=== PATIENT | male | born 1975 | race American Indian/Alaskan Native ===

== ENCOUNTER 2018-06-28 11:09 | Emergency (ER) | payer MEDICAID ==
[2018-06-28 11:21] VITALS: BP 133/82
[2018-06-28] MEDS ORDERED: NACL 0.9% 1000 ML 1,000 ML IV ONE (12:22)
--- NOTE | 2018-06-28 13:02 | Cat Scan Report ---
FINAL REPORT EXAM: CT ABDOMEN PELVIS WO CON HISTORY: flank pain and dysuyria TECHNIQUE: CT of the abdomen and pelvis was performed without intravenous contrast. Reconstructions were included in the coronal and sagittal planes. PRIORS: None. FINDINGS: Lower thorax: The lung bases are clear. The visualized portions of the heart are normal. Liver: The liver is normal in attenuation. No intrahepatic biliary duct dilation. No focal hepatic lesions. Gallbladder/ biliary system: No cholelithiasis. The common bile duct appears nondilated. Spleen: No splenic lesions are seen. Pancreas: No pancreatic lesions are seen. No pancreatic duct dilation. Kidneys: No renal masses, cysts or hydronephrosis. No renal or ureteral calcifications. Adrenal glands: No adrenal masses. Vasculature: The abdominal aorta is nondilated. Lymph nodes: No enlarged lymph nodes are seen in the abdomen or pelvis. Bowel, mesentery, peritoneum: No bowel obstruction. No free fluid or free air. The appendix is normal. No colonic diverticulosis. No bowel wall thickening. Urinary bladder: No filling defects are seen. Pelvis: Normal anatomy is noted. No masses. Abdominal wall: No abdominal wall hernia or other subcutaneous findings. Bones: No acute or chronic osseous finding. IMPRESSION: No acute intra-abdominal or intra-pelvic process.
[2018-06-28 13:33] LABS: Basophils # (Auto) 0.1 K/mm3 (0.0-0.1); Basophils % (Auto) 0.4 % (0.0-1.8); Hematocrit 46.8 % (35.5-45.6); Hemoglobin 15.3 gm/dl (11.8-15.2); Lymphocytes # (Auto) 2.6 K/mm3 (1.2-5.4); Lymphocytes % (Auto) 12.9 % (13.4-35.0); Mean Corpuscular HGB Conc 33 % (32-34); Mean Corpuscular Hemoglobin 24 pg (28-32); Mean Corpuscular Volume 73 fl (84-94); Monocytes # (Auto) 1.8 K/mm3 (0.0-0.8); Platelet Count 284 K/mm3 (140-440); Red Blood Count 6.44 M/mm3 (3.65-5.03); Red Cell Distribution Width 15.4 % (13.2-15.2)
[2018-06-28] MEDS ORDERED: ROCEPHIN/NS 2 GM/100 ML 2 GM/100 ML BAG IV ONE (13:47)
[2018-06-28 13:48] LABS: Alanine Aminotransferase 19 units/L (7-56); Albumin 4.4 g/dL (3.9-5); BUN/Creatinine Ratio 11; Blood Urea Nitrogen 11 mg/dL (9-20); Calcium 9.2 mg/dL (8.4-10.2); Hemolysis Index 5
[2018-06-28 14:14] LABS: Bilirubin,Urine NEG (Negative); Blood,Urine LG (Negative); Color,Urine Amber (Yellow); Mucus,Urine 2+ /HPF
[2018-06-28 14:15] LABS: RBC,Urine > 182.0 /HPF (0.0-6.0); Urobilinogen,Urine < 2.0 mg/dL (<2.0); WBC,Urine > 182.0 /HPF (0.0-6.0)
--- NOTE | 2018-06-28 16:36 | Emergency Department Report ---
ED Male [facility] - General Chief complaint: Urogenital-Male Stated complaint: BODY ACHE Time Seen by Provider: 06/28/18 12:20 Source: patient Mode of arrival: Ambulatory Limitations: No Limitations - Related Data Previous Rx's Medication Instructions Recorded Last Taken Type Acetaminophen/Codeine [Tylenol 1 tab PO Q6H PRN #14 tab 06/28/18 Unknown Rx /Codeine # 3 tab] Ciprofloxacin HCl [Cipro] 500 mg PO BID #20 tablet 06/28/18 Unknown Rx Allergies Allergy/AdvReac Type Severity Reaction Status Date / Time iodine Allergy Unknown Verified 06/28/18 11:17 ED Review of Systems ROS: Stated complaint: BODY ACHE Other details as noted in HPI ED Past Medical Hx - Past Medical History Previous Medical History?: No - Surgical History Past Surgical History?: No - Social History Smoking Status: Current Every Day Smoker Substance Use Type: Alcohol - Medications Home Medications: Home Medications Medication Instructions Recorded Confirmed Last Taken Type Acetaminophen/Codeine [Tylenol 1 tab PO Q6H PRN #14 tab 06/28/18 Unknown Rx /Codeine # 3 tab] Ciprofloxacin HCl [Cipro] 500 mg PO BID #20 tablet 06/28/18 Unknown Rx ED Physical Exam - General Limitations: No Limitations General appearance: alert, in no apparent distress - Head Head exam: Present: atraumatic, normocephalic - Eye Eye exam: Present: normal appearance, PERRL, EOMI Pupils: Present: normal accommodation - ENT ENT exam: Present: normal exam, normal orophraynx, mucous membranes moist - Neck Neck exam: Present: normal inspection, full ROM - Respiratory Respiratory exam: Present: normal lung sounds bilaterally, wheezes, rales, rhonchi. Absent: respiratory distress - Cardiovascular Cardiovascular Exam: Present: regular rate, normal rhythm. Absent: systolic murmur, diastolic murmur, rubs, gallop - GI/Abdominal GI/Abdominal exam: Present: soft, tenderness, normal bowel sounds. Absent: hypoactive bowel sounds, organomegaly, mass, bruit - Rectal Rectal exam: Present: deferred - Extremities Exam Extremities exam: Present: normal inspection, full ROM, tenderness, normal capillary refill - Back Exam Back exam: Present: normal inspection, full ROM, CVA tenderness (R), CVA tenderness (L). Absent: paraspinal tenderness, vertebral tenderness - Neurological Exam Neurological exam: Present: alert, oriented X3, CN II-XII intact, normal gait - Psychiatric Psychiatric exam: Present: normal affect, normal mood - Skin Skin exam: Present: warm, dry, intact, normal color. Absent: rash ED Course Vital Signs 06/28/18 06/28/18 11:17 15:01 Temperature 99.1 F 99.7 F H Pulse Rate 90 Blood Pressure 133/82 ED Medical Decision Making - Lab Data Result diagrams: 06/28/18 12:55 06/28/18 12:55 Critical care attestation.: If time is entered above; I have spent that time in minutes in the direct care of this critically ill patient, excluding procedure time. ED Disposition Clinical Impression: Pyelonephritis Disposition: TO HOME OR SELFCARE Is pt being admited?: No Does the pt Need Aspirin: No Condition: Stable Instructions: Acute Pyelonephritis (ED), Urinary Tract Infection in Men (ED) Prescriptions: Acetaminophen/Codeine [Tylenol /Codeine # 3 tab] 1 tab PO Q6H PRN #14 tab PRN Reason: Pain , Severe (7-10) Ciprofloxacin HCl [Cipro] 500 mg PO BID #20 tablet Referrals: [facility] [Provider Group] - 3-5 Days
[2018-06-28] MEDS ORDERED: PERCOCET 5/325 PO STA (16:44)
== END 2018-06-28 16:53 | disposition home or self-care (01) ==
LOC: ED 11:09
DX: N12 Tubulo-interstitial nephritis, not specified as acute or chronic (principal); F17.200 Nicotine dependence, unspecified, uncomplicated; R10.9 Unspecified abdominal pain; R30.0 Dysuria
CPT/HCPCS: 36415; 74176; 80053; 81001; 82962; 85025; 87076; 87086; 87186; 96365; 99284; J0696; J7030

== ENCOUNTER 2019-08-20 05:28 | Emergency (ER) | payer SELFPAY ==
--- NOTE | 2019-08-20 06:05 | XRay Report ---
RIGHT HAND 2 VIEWS INDICATION / CLINICAL INFORMATION: Right hand injury. COMPARISON: None available. FINDINGS: BONES and JOINT(S): No acute fracture or subluxation. No significant arthritis. SOFT TISSUES: No significant abnormality. ADDITIONAL FINDINGS: None. IMPRESSION: No acute abnormality of the right hand. Signer Name: Nestor Virgen MD Signed: 08/20/2019 6:01 AM Workstation Name: [id number]
--- NOTE | 2019-08-20 07:40 | Emergency Department Report ---
ED Upper Extremity Inj HPI - General Chief Complaint: Extremity Injury, Upper Stated Complaint: CHIPPED BONE ON RIGHT FINGER Time Seen by Provider: 08/20/19 07:19 Source: patient Mode of arrival: Ambulatory Limitations: No Limitations - History of Present Illness Initial Comments: This is a 44-year-old -[place] male presents to the emergency room with pain to his 3rd proximal finger. 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 He reports decreased range of motion and worsening pain with movement. Patient states he is unable to make a fist. States he is able to move all of her fingers right hand except for the 3rd finger. He denies swelling, numbness or tingling, weakness, bruising, break in skin. Complaint: Injury to:: right, hand Onset/Timin -: days(s) Other Extremity Injury: Hand: Right Other Injuries: none Handedness: right Place: work Improves With: immobilization Worsens With: movement of extremity Context: direct blow Associated Symptoms: denies other symptoms - Related Data Previous Rx's Medication Instructions Recorded Last Taken Type Acetaminophen/Codeine [Tylenol 1 tab PO Q6H PRN #14 tab 06/28/18 Unknown Rx /Codeine # 3 tab] Ciprofloxacin HCl [Cipro] 500 mg PO BID #20 tablet 06/28/18 Unknown Rx Allergies Allergy/AdvReac Type Severity Reaction Status Date / Time iodine Allergy Anaphylaxis Verified 08/20/19 05:30 shellfish derived Allergy Anaphylaxis Verified 08/20/19 05:30 ED Review of Systems ROS: Stated complaint: CHIPPED BONE ON RIGHT FINGER Other details as noted in HPI Constitutional: denies: chills, fever Respiratory: denies: cough, shortness of breath, wheezing Cardiovascular: denies: chest pain, palpitations Gastrointestinal: denies: abdominal pain, nausea, diarrhea Musculoskeletal: arthralgia (third right finger pain). denies: back pain, joint swelling Skin: denies: rash, lesions Neurological: denies: headache, weakness, paresthesias Psychiatric: denies: anxiety, depression ED Past Medical Hx - Past Medical History Previous Medical History?: No - Surgical History Past Surgical History?: No - Social History Smoking Status: Current Every Day Smoker Substance Use Type: None - Medications Home Medications: Home Medications Medication Instructions Recorded Confirmed Last Taken Type Acetaminophen/Codeine [Tylenol 1 tab PO Q6H PRN #14 tab 06/28/18 Unknown Rx /Codeine # 3 tab] Ciprofloxacin HCl [Cipro] 500 mg PO BID #20 tablet 06/28/18 Unknown Rx ED Physical Exam - General Limitations: No Limitations General appearance: alert, in no apparent distress - Respiratory Respiratory exam: Present: normal lung sounds bilaterally. Absent: respiratory distress - Cardiovascular Cardiovascular Exam: Present: regular rate, normal rhythm. Absent: systolic murmur, diastolic murmur, rubs, gallop - GI/Abdominal GI/Abdominal exam: Present: soft, normal bowel sounds - Expanded Upper Extremity Exam Right Shoulder Exam: Present: normal inspection, full ROM Upper Arm exam: Present: normal inspection, full ROM Elbow exam: Present: normal inspection, full ROM Forearm Wrist exam: Present: normal inspection, full ROM Hand Wrist exam: Present: full ROM (pain with FROM), tenderness (TTP over 3rd PIP, FROM, no swelling, deformity). Absent: swelling, abrasion, laceration, ecchymosis, deformity, crepidus, dislocation, erythema Neuro motor exam: Present: wrist extension intact, thumb opposition intact, thumb IP flexion intact, thumb adduction intact, fingers 2-5 abduction intact Neurosensory exam: Present: radial nerve intact, ulnar nerve intact, median nerve intact Vascular: Present: normal capillary refill (brisk), radial pulse (2+) - Neurological Exam Neurological exam: Present: alert, oriented X3, normal gait - Expanded Neurological Exam Expanded Patient oriented to: Present: person, place, time Speech: Present: fluid speech Cerebellar function: Finger to Nose: Normal Upper motor neuron: Pankaj Neglect: Normal, Pronator Drift: Normal, Sensory Extinction: Normal Sensory exam: Upper Extremity Light Touch: Normal, Upper Extremity Pin Prick: Normal, Upper Extremity Temperature: Normal, UE 2 Point Discrimination: Normal Motor strength exam: RUE: 5, LUE: 5 DTR: bicep (R): 4+, tricep (R): 4+ Best Eye Response ([place]): (4) open spontaneously Best Motor Response ([place]): (6) obeys commands Best Verbal Response ([place]): (5) oriented [place] Total: 15 - Psychiatric Psychiatric exam: Present: normal affect, normal mood - Skin Skin exam: Present: warm, dry, intact, normal color. Absent: rash ED Medical Decision Making - Radiology Data Radiology results: report reviewed RIGHT HAND 2 VIEWS INDICATION / CLINICAL INFORMATION: Right hand injury. COMPARISON: None available. FINDINGS: BONES and JOINT(S): No acute fracture or subluxation. No significant arthritis. SOFT TISSUES: No significant abnormality. ADDITIONAL FINDINGS: None. IMPRESSION: No acute abnormality of the right hand. - Medical Decision Making This patient was seen and is provided. Vitals stable. Patient is in no acute distress. An x-ray the right hand was obtained. On exam of right hand there is TTP of 3rd PIP, no swelling, no erythema, no deformity, FROM. X-ray was dictated by radiologist with no acute abnormality of the right hand. This is believed to be sprain or strain of right finger. An [place] wrap was applied to right hand. Patient given RICE therapy instructions. Patient instructed to take Tylenol, ibuprofen, naproxen for pain. Patient discharged home stable. Return to work tomorrow. Critical care attestation.: If time is entered above; I have spent that time in minutes in the direct care of this critically ill patient, excluding procedure time. ED Disposition Clinical Impression: Pain in finger of right hand Finger sprain Qualifiers: Encounter type: initial encounter Finger: middle finger Sprain of finger site: metacarpophalangeal joint Laterality: right Qualified Code(s): S63.652A - Sprain of metacarpophalangeal joint of right middle finger, initial encounter Disposition: TO HOME OR SELFCARE Is pt being admited?: No Condition: Stable Instructions: Finger Sprain (ED) Additional Instructions: Rest Use ice or heat on affected area for 20 minutes and off for 2 hours. Take pain medication as needed for pain. Don't drive or operate heavy machinery while taking muscle relaxers because they may cause drowsiness. Follow up with Primary Care Provider. Referrals: [facility] [Outside] - 3-5 Days [facility] [Outside] - 3-5 Days [facility] [Outside] - 3-5 Days Forms: Work/School Release Form(ED) Time of Disposition: 07:51
== END 2019-08-20 08:01 | disposition home or self-care (01) ==
LOC: ED 05:28
DX: S63.612A Unspecified sprain of right middle finger, initial encounter (principal); F17.200 Nicotine dependence, unspecified, uncomplicated; Z79.899 Other long term (current) drug therapy; Z91.013 Allergy to seafood; Z91.041 Radiographic dye allergy status; W22.8XXA Striking against or struck by other objects, initial encounter; Y93.89 Activity, other specified; Y92.89 Other specified places as the place of occurrence of the external cause; Y99.8 Other external cause status
CPT/HCPCS: 99283

== ENCOUNTER 2020-01-18 08:17 | Emergency (ER) | payer BC ==
[2020-01-18] MEDS ORDERED: DEXAMETHASONE 4 MG TAB PO ONE (08:46)
--- NOTE | 2020-01-18 08:51 | Emergency Department Report ---
ED ENT HPI - General Chief complaint: Sore Throat Stated complaint: THROAT PAIN Time Seen by Provider: 01/18/20 08:39 Source: patient Mode of arrival: Ambulatory Limitations: No Limitations - History of Present Illness Initial comments: 44-year-old male with no significant past medical history presents to the ER today complaining of sore throat. Onset was yesterday. He states pain is worse with swallowing, and feels like he is just been getting worse. He reports a mild intermittent nonproductive cough. He denies any obvious ill contacts. He denies any runny nose, stuffy nose, fever, chills, drooling, trismus, sensation of swelling in the throat, or difficulty breathing. MD complaint: sore throat -: Sudden (yesterday) Location: throat Severity: moderate - Related Data Previous Rx's Medication Instructions Recorded Last Taken Type Amoxicillin [Trimox CAP] 500 mg PO Q12H #20 capsule 01/18/20 Unknown Rx methylPREDNISolone [Medrol 4MG 4 mg PO DAILY #1 tab.ds.pk 01/18/20 Unknown Rx DOSEPAK (21 tabs)] Allergies Allergy/AdvReac Type Severity Reaction Status Date / Time iodine Allergy Anaphylaxis Verified 08/20/19 05:30 shellfish derived Allergy Anaphylaxis Verified 08/20/19 05:30 ED Dental HPI - General Chief complaint: Sore Throat Stated complaint: THROAT PAIN Time Seen by Provider: 01/18/20 08:39 Source: patient Mode of arrival: Ambulatory Limitations: No Limitations - Related Data Previous Rx's Medication Instructions Recorded Last Taken Type Amoxicillin [Trimox CAP] 500 mg PO Q12H #20 capsule 01/18/20 Unknown Rx methylPREDNISolone [Medrol 4MG 4 mg PO DAILY #1 tab.ds.pk 01/18/20 Unknown Rx DOSEPAK (21 tabs)] Allergies Allergy/AdvReac Type Severity Reaction Status Date / Time iodine Allergy Anaphylaxis Verified 08/20/19 05:30 shellfish derived Allergy Anaphylaxis Verified 08/20/19 05:30 ED Review of Systems ROS: Stated complaint: THROAT PAIN Other details as noted in HPI Constitutional: denies: chills, fever ENT: throat pain. denies: ear pain, dental pain, hearing loss, congestion Respiratory: cough Cardiovascular: denies: chest pain, palpitations Endocrine: no symptoms reported Gastrointestinal: denies: abdominal pain, nausea, diarrhea Musculoskeletal: denies: back pain, joint swelling, arthralgia Skin: denies: rash, lesions Neurological: denies: headache, weakness, paresthesias Psychiatric: denies: anxiety, depression ED Past Medical Hx - Past Medical History Previous Medical History?: No - Surgical History Past Surgical History?: No - Social History Smoking Status: Current Every Day Smoker Substance Use Type: None - Medications Home Medications: Home Medications Medication Instructions Recorded Confirmed Last Taken Type Amoxicillin [Trimox CAP] 500 mg PO Q12H #20 capsule 01/18/20 Unknown Rx methylPREDNISolone [Medrol 4MG 4 mg PO DAILY #1 tab.ds.pk 01/18/20 Unknown Rx DOSEPAK (21 tabs)] ED Physical Exam - General Limitations: No Limitations General appearance: alert, in no apparent distress - Head Head exam: Present: atraumatic, normocephalic, normal inspection - Eye Eye exam: Present: normal appearance, PERRL, EOMI Pupils: Present: normal accommodation - Expanded ENT Exam Expanded TM/Canal exam: Effusion: Right TM, Left TM Throat exam: Positive: tonsillar erythema, tonsillomegaly, tonsillar exudate (Mild, mainly right tonsil) - Neck Neck exam: Present: normal inspection, full ROM. Absent: meningismus - Respiratory Respiratory exam: Absent: respiratory distress - Cardiovascular Cardiovascular Exam: Present: regular rate - GI/Abdominal GI/Abdominal exam: Present: tenderness - Neurological Exam Neurological exam: Present: alert, oriented X3, CN II-XII intact - Psychiatric Psychiatric exam: Present: normal mood - Skin Skin exam: Present: intact ED Course Vital Signs 01/18/20 08:23 Temperature 99.8 F H Respiratory 20 Rate Blood Pressure 177/103 Critical care attestation.: If time is entered above; I have spent that time in minutes in the direct care of this critically ill patient, excluding procedure time. ED Disposition Clinical Impression: Tonsillitis Disposition: DC-01 TO HOME OR SELFCARE Is pt being admited?: No Does the pt Need Aspirin: No Condition: Stable Instructions: Tonsillitis (ED) Additional Instructions: Take medications as prescribed. Recommend warm salt water gargles. Recommend drinking lots of fluids. Follow up with PCP. Return to ED if worse. Prescriptions: methylPREDNISolone [Medrol 4MG DOSEPAK (21 tabs)] 4 mg PO DAILY #1 tab.ds.pk Amoxicillin [Trimox CAP] 500 mg PO Q12H #20 capsule Referrals: PRIMARY CARE, [Primary Care Provider] - 3-5 Days Forms: Work/School Release Form(ED) Time of Disposition: 09:13
[2020-01-18] MEDS ORDERED: KETOROLAC 10 MG TAB PO ONE (09:15)
[2020-01-19 13:13] VITALS: BP 177/103
== END 2020-01-18 09:32 | disposition home or self-care (01) ==
LOC: ED 08:17
DX: J03.90 Acute tonsillitis, unspecified (principal); F17.200 Nicotine dependence, unspecified, uncomplicated; Z79.899 Other long term (current) drug therapy; Z91.013 Allergy to seafood; Z88.8 Allergy status to other drugs, medicaments and biological substances
CPT/HCPCS: 87116; 87430; 99283; J8540

== ENCOUNTER 2020-03-30 08:02 | Emergency (ER) | payer BC ==
[2020-03-30 08:10] VITALS: BP 153/95
--- NOTE | 2020-03-30 09:28 | Emergency Department Report ---
ED General Adult HPI - General Chief complaint: Weakness Stated complaint: F/WEAKNESS/N/V Time Seen by Provider: 03/30/20 09:02 Source: patient Mode of arrival: Ambulatory Limitations: No Limitations - History of Present Illness Initial comments: Patient is a 44-year-old male who presents emergency room with complaints of nausea and vomiting that occurred 5 days ago. 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 He states he has associated headache, body aches, muscle spasms. He states yesterday he had a fever of 100.3 and chills. He states that the vomiting has resolved. He states that he did not have a fever this morning when he woke up. He denies any diarrhea, cough, shortness of breath, abdominal pain, urinary symptoms, dark urine. He denies any past medical history. Denies any allergies to medications. He endorses tobacco use and occasional alcohol use. He denies any sick contacts or recent travel. - Related Data Previous Rx's Medication Instructions Recorded Last Taken Type Amoxicillin [Trimox CAP] 500 mg PO Q12H #20 capsule 01/18/20 Unknown Rx methylPREDNISolone [Medrol 4MG 4 mg PO DAILY #1 tab.ds.pk 01/18/20 Unknown Rx DOSEPAK (21 tabs)] metFORMIN [Glucophage] 500 mg PO QDAY #30 tab 03/30/20 Unknown Rx Allergies Allergy/AdvReac Type Severity Reaction Status Date / Time iodine Allergy Anaphylaxis Verified 03/30/20 08:05 shellfish derived Allergy Anaphylaxis Verified 03/30/20 08:05 ED Review of Systems ROS: Stated complaint: F/WEAKNESS/N/V Other details as noted in HPI Comment: All other systems reviewed and negative ED Past Medical Hx - Past Medical History Previous Medical History?: No - Surgical History Additional Surgical History: ORAL - Social History Smoking Status: Current Some Day Smoker Substance Use Type: None - Medications Home Medications: Home Medications Medication Instructions Recorded Confirmed Last Taken Type Amoxicillin [Trimox CAP] 500 mg PO Q12H #20 capsule 01/18/20 Unknown Rx methylPREDNISolone [Medrol 4MG 4 mg PO DAILY #1 tab.ds.pk 01/18/20 Unknown Rx DOSEPAK (21 tabs)] metFORMIN [Glucophage] 500 mg PO QDAY #30 tab 03/30/20 Unknown Rx ED Physical Exam - General Limitations: No Limitations General appearance: alert, in no apparent distress - Head Head exam: Present: atraumatic, normocephalic - Eye Eye exam: Present: normal appearance - ENT ENT exam: Present: mucous membranes moist - Respiratory Respiratory exam: Present: normal lung sounds bilaterally. Absent: respiratory distress, wheezes, rales, rhonchi, stridor, chest wall tenderness, accessory muscle use, decreased breath sounds, prolonged expiratory - Cardiovascular Cardiovascular Exam: Present: regular rate, normal rhythm, normal heart sounds. Absent: systolic murmur, diastolic murmur, rubs, gallop - GI/Abdominal GI/Abdominal exam: Present: soft, normal bowel sounds. Absent: distended, tenderness, guarding, rebound, rigid - Neurological Exam Neurological exam: Present: alert, oriented X3 - Psychiatric Psychiatric exam: Present: normal affect, normal mood - Skin Skin exam: Present: warm, dry, intact ED Course Vital Signs 03/30/20 08:05 Temperature 98.4 F Pulse Rate 77 Respiratory 16 Rate Blood Pressure 153/95 O2 Sat by Pulse 98 Oximetry ED Medical Decision Making - Lab Data Result diagrams: 03/30/20 09:26 Lab Results 03/30/20 03/30/20 03/30/20 Range/Units 09:19 09:26 09:26 WBC 5.4 (4.5-11.0) K/mm3 RBC 6.59 H (3.65-5.03) M/mm3 Hgb 15.4 H (11.8-15.2) gm/dl Hct 48.0 H (35.5-45.6) % MCV 73 L (84-94) fl MCH 23 L (28-32) pg MCHC 32 (32-34) % RDW 14.6 (13.2-15.2) % Plt Count 194 (140-440) K/mm3 Lymph % (Auto) 25.4 (13.4-35.0) % [place] % (Auto) 13.1 H (0.0-7.3) % Eos % (Auto) 0.2 (0.0-4.3) % Baso % (Auto) 0.6 (0.0-1.8) % Lymph # 1.4 (1.2-5.4) K/mm3 [place] # 0.7 (0.0-0.8) K/mm3 Eos # 0.0 (0.0-0.4) K/mm3 Baso # 0.0 (0.0-0.1) K/mm3 Seg Neutrophils % 60.7 (40.0-70.0) % Seg Neutrophils # 3.3 (1.8-7.7) K/mm3 Total Creatine Kinase 235 H (55-170) units/L Urine Color Yellow (Yellow) Urine Turbidity Clear (Clear) Urine pH 5.0 (5.0-7.0) Ur Specific [place] 1.042 H (1.003-1.030) Urine Protein 30 mg/dl (Negative) mg/dL Urine Glucose (UA) >=500 (Negative) mg/dL Urine Ketones Tr (Negative) mg/dL Urine Blood Neg (Negative) Urine Nitrite Neg (Negative) Urine Bilirubin Neg (Negative) Urine Urobilinogen 2.0 (<2.0) mg/dL Ur Leukocyte Esterase Neg (Negative) Urine WBC (Auto) < 1.0 (0.0-6.0) /HPF Urine RBC (Auto) 3.0 (0.0-6.0) /HPF U Epithel Cells (Auto) < 1.0 (0-13.0) /HPF Urine Mucus Few /HPF - Medical Decision Making Patient is a 44-year-old male who presents emergency room with complaints of nausea and vomiting that occurred 5 days ago. 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 He states he has associated headache, body aches, muscle spasms. He states yesterday he had a fever of 100.3 and chills. He states that the vomiting has resolved. He states that he did not have a fever this morning when he woke up. He denies any diarrhea, cough, shortness of breath, abdominal pain, urinary symptoms, dark urine. He denies any past medical history. Denies any allergies to medications. He endorses tobacco use and occasional alcohol use. He denies any sick contacts or recent travel. Vitals are stable. No abnormality on physical examination as documented in chart. CBC and CK are stable. UA shows greater than 500 glucose. CMP and lipase sent by paper chart during downtime, paper was scanned into patient's chart, significant for mild dehydration and blood glucose of 324. Patient given 1 L IV fluids. Accu-Chek performed by nurse and was 240. Discussed all results with patient and discussed diabetes. Discussed diet and exercise. Patient given prescription for metformin. Discussed the importance of primary care reexamination and management. advised pt Please take medication as prescribed. Increase your water intake. Eat a low sugar/low carbohydrate diet. Incorporate 30 to 60 minutes of aerobic exercise. Please get a glucose monitor and measure your blood sugar 3 times a day and keep a log and take this to the primary care doctor. Please follow-up with a primary care doctor in the next 2 days. Return to emergency room immediately for any new or worsening symptoms. - Differential Diagnosis Viral syndrome, DM, DKA, dehydration, rhabdomyolysis, electrolyte dz, RUBINA Critical care attestation.: If time is entered above; I have spent that time in minutes in the direct care of this critically ill patient, excluding procedure time. ED Disposition Clinical Impression: Generalized body aches, Muscle spasm Diabetes Qualifiers: Diabetes mellitus type: type 2 Diabetes mellitus emt intermediate insulin use: without longterm use Diabetes mellitus complication status: with hyperglycemia Qualified Code(s): E11.65 - Type 2 diabetes mellitus with hyperglycemia Nausea & vomiting Qualifiers: Vomiting type: unspecified Vomiting Intractability: non-intractable Qualified Code(s): R11.2 - Nausea with vomiting, unspecified Disposition: DC-01 TO HOME OR SELFCARE Is pt being admited?: No Does the pt Need Aspirin: No Condition: Stable Instructions: How to Check Your Blood Sugar (ED), Diabetes Mellitus Type 2 in Adults (ED) Additional Instructions: Please take medication as prescribed. Increase your water intake. Eat a low sugar/low carbohydrate diet. Incorporate 30 to 60 minutes of aerobic exercise. Please get a glucose monitor and measure your blood sugar 3 times a day and keep a log and take this to the primary care doctor. Please follow-up with a primary care doctor in the next 2 days. Return to emergency room immediately for any new or worsening symptoms. Prescriptions: metFORMIN [Glucophage] 500 mg PO QDAY #30 tab Referrals: [facility] [Provider Group] - 2-[address] [facility] [Outside] - 2-3 Days CARBUCCIA,SAMY, MD [Staff Physician] - 2-3 Days Print Language: SERBIAN
[2020-03-30 09:50] LABS: Bilirubin,Urine NEG (Negative); Blood,Urine NEG (Negative); Color,Urine Yellow (Yellow); Mucus,Urine FEW /HPF; WBC,Urine < 1.0 /HPF (0.0-6.0)
[2020-03-30 09:50] LABS: Basophils % (Auto) 0.6 % (0.0-1.8); Eosinophils % (Auto) 0.2 % (0.0-4.3); Hemoglobin 15.4 gm/dl (11.8-15.2); Lymphocytes # (Auto) 1.4 K/mm3 (1.2-5.4); Lymphocytes % (Auto) 25.4 % (13.4-35.0); Mean Corpuscular HGB Conc 32 % (32-34); Mean Corpuscular Volume 73 fl (84-94); Monocytes # (Auto) 0.7 K/mm3 (0.0-0.8); Monocytes % (Auto) 13.1 % (0.0-7.3); Platelet Count 194 K/mm3 (140-440); Red Blood Count 6.59 M/mm3 (3.65-5.03); Red Cell Distribution Width 14.6 % (13.2-15.2)
[2020-03-30] MEDS ORDERED: SODIUM CHLORIDE 0.9% 1000 ML 1,000 ML IV ONE (09:53)
[2020-03-30 10:21] LABS: Alanine Aminotransferase 19 units/L (7-56); Albumin 4.7 g/dL (3.9-5); BUN/Creatinine Ratio 11; Blood Urea Nitrogen 12 mg/dL (9-20); Calcium 9.5 mg/dL (8.4-10.2); Hemolysis Index 19
== END 2020-03-30 13:45 | disposition home or self-care (01) ==
LOC: ED 08:02
DX: E11.9 Type 2 diabetes mellitus without complications (principal); R11.2 Nausea with vomiting, unspecified; M62.838 Other muscle spasm; F17.200 Nicotine dependence, unspecified, uncomplicated; Z79.2 Long term (current) use of antibiotics; Z79.899 Other long term (current) drug therapy; Z91.013 Allergy to seafood; Z88.8 Allergy status to other drugs, medicaments and biological substances
CPT/HCPCS: 36415; 80053; 81001; 82550; 82962; 83690; 85025; 96360; 99283; J7030

== ENCOUNTER 2020-06-21 10:23 | Emergency (ER) | payer BC ==
--- NOTE | 2020-06-21 11:28 | Emergency Department Report ---
ED ENT HPI - General Chief complaint: Sore Throat Stated complaint: THROAT PAIN Time Seen by Provider: 06/21/20 11:13 Source: patient Mode of arrival: Ambulatory Limitations: No Limitations - History of Present Illness MD complaint: sore throat -: days(s) (3) Location: throat Severity: moderate Quality: dull Consistency: constant Improves with: none Worsens with: swallowing, eating Context- Ear: recent illness Associated Symptoms: pain with swallowing, sore throat. denies: tinnitus, discharge from ear, rhinorrhea - Related Data Previous Rx's Medication Instructions Recorded Last Taken Type Amoxicillin [Trimox CAP] 500 mg PO Q12H #20 capsule 01/18/20 Unknown Rx methylPREDNISolone [Medrol 4MG 4 mg PO DAILY #1 tab.ds.pk 01/18/20 Unknown Rx DOSEPAK (21 tabs)] metFORMIN [Glucophage] 500 mg PO QDAY #30 tab 03/30/20 Unknown Rx Amoxicillin [Amoxicillin TAB] 875 mg PO BID #20 tablet 06/21/20 Unknown Rx methylPREDNISolone [Medrol 4MG 4 mg PO DAILY #1 tab.ds.pk 06/21/20 Unknown Rx DOSEPAK (21 tabs)] Allergies Allergy/AdvReac Type Severity Reaction Status Date / Time iodine Allergy Anaphylaxis Verified 03/30/20 08:05 shellfish derived Allergy Anaphylaxis Verified 03/30/20 08:05 ED Dental HPI - General Chief complaint: Sore Throat Stated complaint: THROAT PAIN Time Seen by Provider: 06/21/20 11:13 Source: patient Mode of arrival: Ambulatory Limitations: No Limitations - Related Data Previous Rx's Medication Instructions Recorded Last Taken Type Amoxicillin [Trimox CAP] 500 mg PO Q12H #20 capsule 01/18/20 Unknown Rx methylPREDNISolone [Medrol 4MG 4 mg PO DAILY #1 tab.ds.pk 01/18/20 Unknown Rx DOSEPAK (21 tabs)] metFORMIN [Glucophage] 500 mg PO QDAY #30 tab 03/30/20 Unknown Rx Amoxicillin [Amoxicillin TAB] 875 mg PO BID #20 tablet 06/21/20 Unknown Rx methylPREDNISolone [Medrol 4MG 4 mg PO DAILY #1 tab.ds.pk 06/21/20 Unknown Rx DOSEPAK (21 tabs)] Allergies Allergy/AdvReac Type Severity Reaction Status Date / Time iodine Allergy Anaphylaxis Verified 03/30/20 08:05 shellfish derived Allergy Anaphylaxis Verified 03/30/20 08:05 ED Review of Systems ROS: Stated complaint: THROAT PAIN Other details as noted in HPI Comment: All other systems reviewed and negative ED Past Medical Hx - Past Medical History Previous Medical History?: No - Surgical History Past Surgical History?: No Additional Surgical History: ORAL - Social History Smoking Status: Current Some Day Smoker Substance Use Type: None - Medications Home Medications: Home Medications Medication Instructions Recorded Confirmed Last Taken Type Amoxicillin [Trimox CAP] 500 mg PO Q12H #20 capsule 01/18/20 Unknown Rx methylPREDNISolone [Medrol 4MG 4 mg PO DAILY #1 tab.ds.pk 01/18/20 Unknown Rx DOSEPAK (21 tabs)] metFORMIN [Glucophage] 500 mg PO QDAY #30 tab 03/30/20 Unknown Rx Amoxicillin [Amoxicillin TAB] 875 mg PO BID #20 tablet 06/21/20 Unknown Rx methylPREDNISolone [Medrol 4MG 4 mg PO DAILY #1 tab.ds.pk 06/21/20 Unknown Rx DOSEPAK (21 tabs)] ED Physical Exam - General Limitations: No Limitations General appearance: alert, in no apparent distress - Head Head exam: Present: atraumatic, normocephalic - Eye Eye exam: Present: normal appearance, PERRL, EOMI Pupils: Present: normal accommodation - ENT ENT exam: Present: normal exam, mucous membranes moist - Neck Neck exam: Present: normal inspection - Respiratory Respiratory exam: Present: normal lung sounds bilaterally. Absent: respiratory distress, wheezes, rales, accessory muscle use, decreased breath sounds - Cardiovascular Cardiovascular Exam: Present: regular rate, normal rhythm. Absent: systolic murmur, diastolic murmur, rubs, gallop - GI/Abdominal GI/Abdominal exam: Present: soft, normal bowel sounds. Absent: distended, hyperactive bowel sounds, hypoactive bowel sounds, organomegaly - Rectal Rectal exam: Present: deferred - Extremities Exam Extremities exam: Present: normal inspection - Back Exam Back exam: Present: normal inspection - Neurological Exam Neurological exam: Present: alert, oriented X3 - Psychiatric Psychiatric exam: Present: normal affect, normal mood - Skin Skin exam: Present: warm, dry, intact, normal color. Absent: rash Critical care attestation.: If time is entered above; I have spent that time in minutes in the direct care of this critically ill patient, excluding procedure time. ED Disposition Clinical Impression: Pharyngitis Disposition: DC-01 TO HOME OR SELFCARE Is pt being admited?: No Does the pt Need Aspirin: No Condition: Stable Instructions: Pharyngitis (ED) Prescriptions: Amoxicillin [Amoxicillin TAB] 875 mg PO BID #20 tablet methylPREDNISolone [Medrol 4MG DOSEPAK (21 tabs)] 4 mg PO DAILY #1 tab.ds.pk Referrals[facility] [Provider Group] - 3-5 Days
== END 2020-06-21 11:43 | disposition home or self-care (01) ==
LOC: ED 10:23
DX: J02.9 Acute pharyngitis, unspecified (principal); F17.200 Nicotine dependence, unspecified, uncomplicated; Z79.899 Other long term (current) drug therapy; Z91.041 Radiographic dye allergy status; Z91.013 Allergy to seafood; Z98.890 Other specified postprocedural states
CPT/HCPCS: 99281